=== PATIENT | male | born 1970 | race Two or more races ===

== ENCOUNTER 2019-11-16 13:26 | Emergency (ER) | payer SELFPAY ==
[~2019-11-16] VITALS: Ht 165.1 cm; Wt 81.6 kg
[2019-11-16 13:45] VITALS: BP 130/93
--- NOTE | 2019-11-16 15:24 | Diagnostic Imaging Report ---
EXAM: XR Chest, 1 View CLINICAL HISTORY: COUGH TECHNIQUE: Frontal view of the chest. COMPARISON: No relevant prior studies available. FINDINGS: Lungs: Unremarkable. No consolidation. Pleural space: Mild elevation of the left hemidiaphragm. No clear pleural effusion. No pneumothorax. Heart: Unremarkable. No cardiomegaly. Mediastinum: Unremarkable. Bones/joints: Mild degenerative changes. IMPRESSION: No evidence of acute pulmonary disease
[2019-11-16] MEDS ORDERED: LORATADINE-D 11 EAC1 PO (15:32)
[2019-11-16] MEDS ORDERED: GUAIFENESI100 MG/5 M ORAL (15:32)
--- NOTE | 2019-11-16 15:32 | Emergency Room Report ---
History of Present Illness General Chief Complaint: Flu Like Symptoms Source: Patient Present Illness HPI 49-year-old male with no significant past medical history here complaining of 4 days of generalized body ache, cough and congestion. Denies any sore throat headache and dizziness. Denies fever and chills, recent travel, coming contact with people with travel. Denies history of COPD. 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 However patient is a 50 criteria to be tested. Denies chest pain, shortness of breath, palpitation, headache and dizziness at this time. Denies tobacco smoke. COVID-19 risk:Travel to affect: No Allergies: Coded Allergies: No Known Allergies (Unverified , 11/16/19) Patient History Past Medical History: see triage record Past Surgical History: none Pertinent Family History: none Immunizations: UTD Reviewed Nursing Documentation: PMH: Agreed; PSxH: Agreed Nursing Documentation-PMH Past Medical History: No Stated History Hx Hypertension: Yes Review of Systems All Other Systems: negative except mentioned in HPI Physical Exam Vital Signs Date Time Temp Pulse Resp B/P (MAP) Pulse Ox O2 Delivery O2 Flow Rate FiO2 11/16/19 13:34 98.8 84 17 130/93 (105) 97 Room Air Sp02 EP Interpretation: reviewed, normal General Appearance: no apparent distress, alert, GCS 15, non-toxic Head: normocephalic, atraumatic Eyes: bilateral eye normal inspection, bilateral eye PERRL ENT: hearing grossly normal, normal pharynx, no angioedema, normal voice Neck: full range of motion, supple, no meningismus, supple/symm/no masses Respiratory: chest non-tender, lungs clear, normal breath sounds, no rhonchi, no retraction, no wheezing, speaking full sentences Cardiovascular #1: regular rate, rhythm, no edema, no murmur Gastrointestinal: normal bowel sounds, non tender, soft, non-distended, no guarding, no rebound Rectal: deferred Genitourinary: no CVA tenderness Musculoskeletal: back normal Neurologic: alert, motor strength/tone normal, oriented x3, sensory intact, responsive, speech normal Psychiatric: judgement/insight normal, memory normal, mood/affect normal, no suicidal/homicidal ideation Skin: no rash Lymphatic: no adenopathy Medical Decision Making PA Attestation All my diagnosis and treatment plans were reviewed ad discussed with my supervising physician Dr. Deshpande Diagnostic Impression: Primary Impression: URI (upper respiratory infection) ER Course 49-year-old male with no significant past medical history here complaining of 4 days of generalized body ache, cough and congestion. Denies any sore throat headache and dizziness. Denies fever and chills, recent travel, coming contact with people with travel. Denies history of COPD. 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 However patient is a 50 criteria to be tested. Denies chest pain, shortness of breath, palpitation, headache and dizziness at this time. Denies tobacco smoke. Ddx considered but are not limited to: Coronavirus, strep pharyngitis, URI, tonsillitis, peritonsillar abscess, influneza Vital signs: are WNL, pt. is afebrile H&PE are most consistent with: Viral URI ORDERS: Chest x-ray, rapid influenza test, guaifenesin, Claritin-D ED INTERVENTIONS: None required at this time. DISCHARGE: At this time pt. is stable for d/c to home. Will provide printed patient care instructions, and any necessary prescriptions. Care plan and follow up instructions have been discussed with the patient prior to discharge. He did not fit the criteria for further testing for coronavirus, self- limiting always advise, follow-up primary care provider, worsening symptoms return to emergency room Chest X-Ray Diagnostic Results Chest X-Ray Diagnostic Results : Chest X-Ray Ordered: Yes # of Views/Limited/Complete: 1 View Indication: Other - Cough EP Interpretation: Yes ALICE Xray: Interpretation reviewed, by supervising MD, and agrees with findings. Interpretation: no consolidation, no effusion, no pneumothorax, no acute cardiopulmonary disease Impression: No acute disease Electronically Signed by: Wallace Landon PA-C Last Vital Signs Date Time Temp Pulse Resp B/P (MAP) Pulse Ox O2 Delivery O2 Flow Rate FiO2 11/16/19 13:45 98.8 17 130/93 97 Room Air 11/16/19 13:45 84 Disposition: HOME, SELF-CARE Condition: Stable Scripts Loratadine/Pseudoephedrine (LORATADINE-D 12 HOUR TABLET) 1 Each Tab.er.12h 1 EACH PO BID, #14 TAB Prov: Sahelimoghavami,Nahal PA 11/16/19 Guaifenesin* (GUAIFENESIN*) 100 Mg/5 Ml Liquid 15 ML ORAL Q6H, #120 ML 0 Refills Prov: Wallace Pantoja 11/16/19 Patient Instructions: Upper Respiratory Infection, Adult, [id number] Additional Instructions: Take medication as directed, follow-up primary care provider, increase oral hydration, if worsening symptoms return to the emergency room Wallace Pantoja Nov 16, 2019 15:32
[2019-11-16 15:40] VITALS: BP 130/93
== END 2019-11-16 16:40 | disposition home or self-care (01) ==
LOC: EMR 14:00
DX: J06.9 Acute upper respiratory infection, unspecified (principal)
CPT/HCPCS: 71045; 86710; 99283